=== PATIENT | female | born 2000 | race Hispanic/Latino ===

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

== ENCOUNTER 2021-11-01 11:23 | Observation (INO) | payer MEDICAID ==
[~2021-11-01] VITALS: Ht 149.9 cm; Wt 83.5 kg
[2021-11-01 12:00] VITALS: BP 107/59
== END 2021-11-01 13:00 | disposition home or self-care (01) ==
LOC: EDH 11:23 → LDH 11:24
PROVIDERS: ADMIT Obstetrics & Gynecology; ATTEND Obstetrics & Gynecology
DX: O26.892 Other specified pregnancy related conditions, second trimester (principal); R10.9 Unspecified abdominal pain; O99.332 Smoking (tobacco) complicating pregnancy, second trimester; F17.200 Nicotine dependence, unspecified, uncomplicated; Z3A.23 23 weeks gestation of pregnancy
CPT/HCPCS: G0378; G0379

== ENCOUNTER → 2025-10-05 | Emergency (ER) | payer SELFPAY ==
[~2025-10-05] VITALS: Ht 149.9 cm; Wt 84.5 kg
[2025-10-05 17:14] VITALS: BP 123/75; PULSE 65; RESP 18; TEMP 98.3
--- NOTE | 2025-10-05 18:27 | ERN ---
ED Note History of Present Illness Stated Complaint: MULTI COMPLAINTS Chief Complaint: Multiple Complaints Time Seen by MD: 17:15 Time Seen by Midlevel: 17:15 Dictation: The patient is a 25-year-old female with history of spinal fusion who presents to the emergency department with complaints of sore throat, nonproductive cough, headache for the last three weeks. Patient became concerned as she develop some lumps on the right side of her neck. Denies any fevers. Allergies: Coded Allergies: No Known Drug Allergies (Unverified Allergy, Unknown, 05/07/18) Home Meds No Active Prescriptions or Reported Meds Past Medical History Past Medical History: No Pertinent History Surgical History: Other Surgical History Other: SPINAL EFFUSION : 3 Para: 2 RN Note Reviewed/Agreed w/PFSH: Yes Review of System Dictation Constitutional: Negative for fever,chills, and weight loss Eyes: Negative for injury, pain,redness, and discharge ENT: Negative for injury,pain or swelling positive for sore throat Cardiovascular: Negative for chest pain, palpitations, and edema Respiratory: Negative for shortness of breath, and wheezing, positive for cough Abdomen/GI: Negative for abdominal pain, nausea, vomiting, diarrhea, and constipation Back: Negative for injury and pain : Negative for injury, bleeding and discharge MS/Extremity: Negative for injury and deformity Skin: Negative for rash, and discoloration Neuro: Negative for , weakness, numbness, tingling, and seizure positive for headache Psych: Negative for suicide ideation, homicidal ideation, and hallucinations Initial Vital Sign VS Vital Signs Date Time Temp Pulse Resp B/P (MAP) Pulse Ox O2 Delivery O2 Flow Rate FiO2 10/05/25 17:14 98.2 65 18 123/75 99 Room Air 0 Physical Exam Dictation Vital Signs reviewed General Appearance: Alert, oriented x 3, no acute distress, well developed, nourished. Head and Face: non-traumatic. Eyes: PERRL, pink conjunctivas, eyelid no trauma, anterior chamber with arcus senilis. Ears: Pinnas intact and no signs of trauma or erythema ear canals clear and no discharge TM no erythema Nose: No discharge, no bleeding. Oropharynx: Mouth normal, tongue pink. pharynx clear,no erythema, tonsils no exudates, no abscesses noted, mucous membrane moist Neck: Supple, non-tender, no thyromegaly, no masses, no JVD, no bruits Breast:Deferred Chest:No tenderness, no crepitus, no paradoxical movement, no retractions Lungs:Clear, well-ventilated, symmetric, no rales, no wheezing, no rhonchi, no stridor, good breath sounds bilaterally Heart: Regular rate, regular rhythm, no murmur, no gallops Vascular: no peripheral edema, Abdomen: Soft, positive bowel sounds, nondistended, no guarding, nontender, no rebound, no masses no hepatomegaly, no splenomegaly, no Vidales's sign, no hernias. Rectal: Deferred Genital: Deferred Neurological: Normal speech, motor function intact, sensory function intact Musculoskeletal: Neck nontender, full range of motion, back nontender, full range of motion, Extremities: nontender, full range of motion Skin: Color pink, dry, no turgor, no rash, no lacerations, no abrasions, no contusions. Lymphatic: Swollen right cervical lymph node, posterior Auricular, tender Results (Laboratory/Radiology) Labs Reviewed?: Yes ED Course ED Course Orders Procedure Category Date Status Time Acetaminophen 500mg PHA 10/05/25 Complete Tab (Tylenol 500mg T 17:30 Current Medications Medications (Trade) Dose Ordered Sig/Laureen Route PRN Reason Start Time Stop Time Status Last Admin Dose Admin Acetaminophen (TYLenol 500MG TAB) 1,000 mg ONCE ONCE PO 10/05/25 17:30 10/05/25 17:31 DC Vital Signs Date Time Temp Pulse Resp B/P (MAP) Pulse Ox O2 Delivery O2 Flow Rate FiO2 10/05/25 17:14 98.2 65 18 123/75 99 Room Air 0 Medical Decision Making MDM The patient is a 25-year-old female with history of spinal fusion who presents to the emergency department with complaints of sore throat, nonproductive cough, headache for the last three weeks. Patient became concerned as she develop some lumps on the right side of her neck. Denies any fevers. Differential diagnosis: URI, pneumonia, strep throat, lymphadenitis Patient eloped from ER DX & DISP Disposition: Other(Comment) (Eloped) Departure Condition: Stable Scripts No Active Prescriptions or Reported Meds Referrals: SELF,REFERRAL (PCP) I have reviewed the case, and I agree with, Diagnosis and Plan CHAY DE DIOSP Oct 05, 2025 18:27
--- NOTE | 2025-10-05 19:31 | NUR ---
PT CAME TO WINDOW, STATES SHE WAS LEAVING, "TAKING TOO LONG." PT WAS TOLD BY ER TRIAGE NURSE, IF SHE NEEDED TO COME BACK LATER, THAT WE WOULD BE OPEN ALL NIGHT,. NURSE APOLOGIZED TO PT FOR THE WAIT.
== END ==
LOC: EDH 17:13
DX: J02.9 Acute pharyngitis, unspecified (principal); R05.9 Cough, unspecified; R51.9 Headache, unspecified; Z53.29 Procedure and treatment not carried out because of patient's decision for other reasons
CPT/HCPCS: 99282